=== PATIENT | female | born 1965 | race Asian ===

== ENCOUNTER 2022-01-08 23:56 | Emergency (ER) | payer MEDICAID ==
[~2022-01-08] VITALS: Ht 149.9 cm; Wt 68.2 kg
[2022-01-09] MEDS ORDERED: AMLO5TAB66 PO (01:36)
[2022-01-09] MEDS ORDERED: LOSA-382 PO ×2 (01:37→02:29)
[2022-01-09] MEDS ORDERED: METF-845 PO ×2 (01:42→02:29)
[2022-01-09 02:21] VITALS: BP 155/88
[2022-01-09] MEDS ORDERED: AMLO-257 PO (02:29)
== END 2022-01-09 03:07 | disposition home or self-care (01) ==
LOC: EMS 23:58
DX: E11.9 Type 2 diabetes mellitus without complications (principal); I10 Essential (primary) hypertension; Z76.0 Encounter for issue of repeat prescription; Z79.899 Other long term (current) drug therapy
CPT/HCPCS: 82962; 99282

== ENCOUNTER 2022-07-19 03:09 | Emergency (ER) | payer OTHER, SELFPAY ==
[~2022-07-19] VITALS: Ht 149.9 cm; Wt 68.0 kg
[~2022-07-19 03:09] MED LIST: AMLO-257 PO; AMLO5TAB66 PO; LOSA-382 PO; METF-845 PO
[2022-07-19 03:46] LABS: GLUCOSE,POINT OF CARE 108 MG/DL (70-110)
[2022-07-19 04:04] LABS: BASOPHILS % (AUTO) 0.4 % (0.0-2.0); EOSINOPHILS % (AUTO) 5.9 % (1.0-6.0); HEMATOCRIT 42.4 % (36-46); HEMOGLOBIN 14.5 g/dL (12.0-16.0); LYMPHOCYTES # (AUTO) 2.3 K/uL (1.0-4.8); LYMPHOCYTES % (AUTO) 22.7 % (22.0-44.0); MEAN CORPUSCULAR HEMOGLOBIN 29.4 pg (26.0-34.0); MEAN CORPUSCULAR HGB CONC 34.2 G/dL (31.0-37.0); MEAN CORPUSCULAR VOLUME 86 fL (80-100); MONOCYTES # (AUTO) 0.6 K/uL (0.1-1.0); MONOCYTES % (AUTO) 5.6 % (2.0-9.0); NEUTROPHILS # (AUTO) 6.6 K/uL (1.8-7.7); NEUTROPHILS % (AUTO) 65.4 % (40.0-70.0); PLATELET COUNT (AUTO) 248 K/uL (150-450); RED BLOOD CELL COUNT(AUTO) 4.92 MIL/uL (4.00-5.20); RED CELL DISTRIBUTION WIDTH 12.9 % (11.5-14.5)
[2022-07-19 04:13] LABS: ANION GAP 9 mmol/L (8-16); CALCIUM, TOTAL 9.7 mg/dL (8.8-10.5); CARBON DIOXIDE 28 mmol/L (22-29); CHLORIDE 105 mmol/L (98-107); CREATININE 0.77 mg/dL (0.60-1.30); GLOMERULAR FILTR. RATE CALC > 60 mL/min (>60); GLUCOSE,RANDOM 131 mg/dL (70-110); POTASSIUM 3.9 mmol/L (3.5-5.1); SODIUM SERUM 142 mmol/L (136-145); UREA NITROGEN, BLOOD 12 mg/dL (7-18)
[2022-07-19 04:27] LABS: ALANINE AMINOTRANSFERASE 40 U/L (12-78); ALBUMIN 4.2 g/dL (3.4-5.0); ALKALINE PHOSPHATASE 119 U/L (46-116); ASPARTATE AMINOTRANSFERASE 28 U/L (15-37); BILIRUBIN,TOTAL 0.5 mg/dL (0.1-1.0); PHOSPHORUS 3.6 mg/dL (2.5-4.9); TOTAL PROTEIN, SERUM 8.6 g/dL (6.4-8.2)
[2022-07-19 04:48] LABS: HCG,QUANTITATIVE 2 mIU/mL (0-6)
[2022-07-19] MEDS ORDERED: MECLIZINE HCL 25 MG TABLET PO ONE (06:30)
[2022-07-19 07:21] VITALS: BP 111/55
[2022-07-19] MEDS ORDERED: MECL-134 PO (08:27)
== END 2022-07-19 08:34 | disposition home or self-care (01) ==
LOC: EMS 03:10
DX: R42 Dizziness and giddiness (principal); E11.9 Type 2 diabetes mellitus without complications; I10 Essential (primary) hypertension
CPT/HCPCS: 80053; 82962; 83735; 84100; 84484; 84702; 85025; 93005; 99284

== ENCOUNTER 2022-09-30 18:08 | Emergency (ER) | payer OTHER ==
[~2022-09-30] VITALS: Ht 149.9 cm; Wt 61.4 kg
[~2022-09-30 18:08] MED LIST changes: +MECL-134 PO
[2022-09-30 18:18] VITALS: BP 150/79
[2022-09-30 21:41] LABS: BASOPHILS % (AUTO) 0.7 % (0.0-2.0); EOSINOPHILS % (AUTO) 2.8 % (1.0-6.0); HEMATOCRIT 41.4 % (36-46); HEMOGLOBIN 13.9 g/dL (12.0-16.0); LYMPHOCYTES # (AUTO) 2.4 K/uL (1.0-4.8); MEAN CORPUSCULAR HEMOGLOBIN 29.4 pg (26.0-34.0); MEAN CORPUSCULAR HGB CONC 33.5 G/dL (31.0-37.0); MEAN CORPUSCULAR VOLUME 88 fL (80-100); MONOCYTES # (AUTO) 0.5 K/uL (0.1-1.0); MONOCYTES % (AUTO) 5.3 % (2.0-9.0); NEUTROPHILS # (AUTO) 5.9 K/uL (1.8-7.7); NEUTROPHILS % (AUTO) 65.2 % (40.0-70.0); PLATELET COUNT (AUTO) 229 K/uL (150-450); RED BLOOD CELL COUNT(AUTO) 4.71 MIL/uL (4.00-5.20); RED CELL DISTRIBUTION WIDTH 12.5 % (11.5-14.5)
[2022-09-30 21:53] LABS: MAGNESIUM 2.4 mg/dL (1.80-2.40); PHOSPHORUS 3.4 mg/dL (2.5-4.9)
[2022-09-30 21:58] LABS: ANION GAP 9 mmol/L (8-16); B-TYPE NATRIURETIC PEPTIDE 13 pg/mL (0-100); CARBON DIOXIDE 26 mmol/L (22-29); CHLORIDE 102 mmol/L (98-107); CREATININE 0.76 mg/dL (0.60-1.30); GLUCOSE,RANDOM 96 mg/dL (70-110); POTASSIUM 3.8 mmol/L (3.5-5.1); SODIUM SERUM 137 mmol/L (136-145); UREA NITROGEN, BLOOD 10 mg/dL (7-18)
[2022-09-30 21:59] LABS: GLOMERULAR FILTR. RATE CALC > 60 mL/min (>60)
[2022-09-30 22:04] LABS: ALANINE AMINOTRANSFERASE 25 U/L (12-78); ALBUMIN 4.6 g/dL (3.4-5.0); ALKALINE PHOSPHATASE 115 U/L (46-116); ASPARTATE AMINOTRANSFERASE 24 U/L (15-37); BILIRUBIN,TOTAL 0.6 mg/dL (0.1-1.0); CREATINE KINASE, TOTAL ONLY 118 U/L (26-192); TOTAL PROTEIN, SERUM 8.6 g/dL (6.4-8.2)
[2022-09-30 23:31] LABS: COVID AG,FIA SOURCE NASOPHARYNGEAL
[2022-09-30 23:50] LABS: INFLUENZA TYPE A NEGATIVE FOR TYPE A (NEGATIVE); INFLUENZA TYPE B NEGATIVE FOR TYPE B (NEGATIVE)
== END 2022-10-01 00:29 | disposition home or self-care (01) ==
LOC: EMS 18:09
DX: R00.2 Palpitations (principal); E11.9 Type 2 diabetes mellitus without complications; I10 Essential (primary) hypertension; Z20.822 Contact with and (suspected) exposure to COVID-19
CPT/HCPCS: 71045; 80053; 82550; 83735; 83880; 84100; 84484; 85025; 87804; 93005; 99285; 36415-L1; 36415-TC

== ENCOUNTER 2022-10-04 11:37 | Emergency (ER) | payer OTHER ==
[~2022-10-04] VITALS: Ht 152.4 cm; Wt 61.4 kg
[~2022-10-04 11:37] MED LIST changes: -AMLO-257 PO; -MECL-134 PO
[2022-10-04 12:28] LABS: BASOPHILS % (AUTO) 0.3 % (0.0-2.0); EOSINOPHILS % (AUTO) 4.9 % (1.0-6.0); HEMATOCRIT 43.4 % (36-46); HEMOGLOBIN 14.4 g/dL (12.0-16.0); LYMPHOCYTES # (AUTO) 1.2 K/uL (1.0-4.8); LYMPHOCYTES % (AUTO) 17.2 % (22.0-44.0); MEAN CORPUSCULAR HEMOGLOBIN 29.6 pg (26.0-34.0); MEAN CORPUSCULAR HGB CONC 33.1 G/dL (31.0-37.0); MEAN CORPUSCULAR VOLUME 89 fL (80-100); MONOCYTES # (AUTO) 0.3 K/uL (0.1-1.0); MONOCYTES % (AUTO) 4.8 % (2.0-9.0); NEUTROPHILS % (AUTO) 72.8 % (40.0-70.0); PLATELET COUNT (AUTO) 129 K/uL (150-450); RED BLOOD CELL COUNT(AUTO) 4.86 MIL/uL (4.00-5.20); RED CELL DISTRIBUTION WIDTH 12.8 % (11.5-14.5)
[2022-10-04 12:35] LABS: ANION GAP 9 mmol/L (8-16); CALCIUM, TOTAL 10.1 mg/dL (8.8-10.5); CARBON DIOXIDE 26 mmol/L (22-29); CHLORIDE 106 mmol/L (98-107); CREATININE 0.81 mg/dL (0.60-1.30); GLUCOSE,RANDOM 101 mg/dL (70-110); POTASSIUM 3.9 mmol/L (3.5-5.1); SODIUM SERUM 141 mmol/L (136-145); UREA NITROGEN, BLOOD 8 mg/dL (7-18)
[2022-10-04 12:36] LABS: GLOMERULAR FILTR. RATE CALC > 60 mL/min (>60)
[2022-10-04 12:41] LABS: ALANINE AMINOTRANSFERASE 26 U/L (12-78); ALBUMIN 4.6 g/dL (3.4-5.0); ALKALINE PHOSPHATASE 115 U/L (46-116); ASPARTATE AMINOTRANSFERASE 25 U/L (15-37); BILIRUBIN,TOTAL 0.7 mg/dL (0.1-1.0); TOTAL PROTEIN, SERUM 8.7 g/dL (6.4-8.2)
[2022-10-04 13:03] LABS: THYROID STIMULATING HORMONE 0.91 uIU/mL (0.36-3.74)
[2022-10-04] MEDS ORDERED: LORazepam 1 MG TABLET PO ONE (13:30)
[2022-10-04 13:46] VITALS: BP 116/53
== END 2022-10-04 14:16 | disposition home or self-care (01) ==
LOC: EMS 12:04
DX: R00.2 Palpitations (principal); I10 Essential (primary) hypertension; E11.9 Type 2 diabetes mellitus without complications; Z79.899 Other long term (current) drug therapy
CPT/HCPCS: 80053; 84443; 84484; 85025; 93005; 99284

== ENCOUNTER 2022-10-06 20:04 | Emergency (ER) | payer OTHER ==
[~2022-10-06] VITALS: Ht 149.9 cm; Wt 51.8 kg
[2022-10-06] MEDS ORDERED: TRAZ-252 PO (20:23)
[2022-10-06] MEDS ORDERED: ATOR10TA PO (20:23)
[2022-10-06] MEDS ORDERED: HydrOXYzine HCL 25 MG TABLET PO ONE (22:00)
[2022-10-06] MEDS ORDERED: HYDR-4527 PO (22:31)
[2022-10-06 23:19] VITALS: BP 133/68
== END 2022-10-07 00:48 | disposition home or self-care (01) ==
LOC: EMS 20:04
DX: R00.2 Palpitations (principal); E11.9 Type 2 diabetes mellitus without complications; F41.9 Anxiety disorder, unspecified; I10 Essential (primary) hypertension
CPT/HCPCS: 93005; 99284; Z7502; Z7610